=== PATIENT | female | born 1985 | race Caucasian/White ===

== ENCOUNTER 2024-04-02 08:54 | Emergency (ER) | payer BC | END 2024-04-02 09:37 | disposition home or self-care (01) | LOC: MW.ED 08:54 | DX: K08.89 Other specified disorders of teeth and supporting structures (principal); H92.02 Otalgia, left ear; J34.89 Other specified disorders of nose and nasal sinuses; Z75.8 Other problems related to medical facilities and other health care; Z88.1 Allergy status to other antibiotic agents; Z79.899 Other long term (current) drug therapy | CPT/HCPCS: 99283 ==